=== PATIENT | male | born 1990 | race Caucasian/White ===

== ENCOUNTER 2018-08-21 10:48 | Emergency (ER) | payer SELFPAY ==
--- NOTE | 2018-08-21 11:31 | EDM.PDOC ---
ED HPI GENERAL MEDICAL PROBLEM - General Chief Complaint: General Stated Complaint: BOWEL ISSUES Time Seen by Provider: 08/21/18 10:53 Source of Information: Reports: Patient History Limitations: Reports: No Limitations - History of Present Illness INITIAL COMMENTS - FREE TEXT/NARRATIVE: HISTORY AND PHYSICAL: History of present illness: Patient is a 28-year-old male presents to the ED today with concern of frequent bowel movement since this morning. Patient states that since this morning he has had approximately 8 different formed bowel movements today and he is concerned that this is unusual. He denies watery consistency and states that it is a normal stool. He denies change in color, of the stool. He states over the past week he has gained 10 pounds and was then concerned about this. He states he does eat a larger amount of food on a day-to-day basis and states he does not eat very healthy. He states he usually does have regular bowel movements about once a day. He denies any blood in his stool. Patient does express been concerned that he has cancer because he has a family history of lung cancers and different cancers. Patient denies any abdominal pain with his symptoms. Patient denies fever, chills, chest pain, shortness of breath, or cough. Denies headache, neck stiff ness, change in vision, syncope, or near syncope. Denies nausea, vomiting, abdominal pain, or dysuria. Has not noted any blood in urine or stool. Patient has been eating and drinking appropriately. Review of systems: As per history of present illness and below otherwise all systems reviewed and negative. Past medical history: As per history of present illness and as reviewed below otherwise noncontributory. Surgical history: As per history of present illness and as reviewed below otherwise noncontributory. Social history: See social history for further information Family history: As per history of present illness and as reviewed below otherwise noncontributory. Physical exam: General: Patient is alert, oriented, and in no acute distress. Patient sitting comfortably on exam table. HEENT: Atraumatic, normocephalic, pupils equal and reactive bilaterally, negative for conjunctival pallor or scleral icterus, mucous membranes moist, TMs normal bilaterally, throat clear, neck supple, nontender, trachea midline. No drooling or trismus noted. No meningeal signs. No hot potato voice noted. Lungs: Clear to auscultation, breath sounds equal bilaterally, chest nontender. Heart: S1S2, regular rate and rhythm without overt murmur Abdomen: Obese, soft, nondistended, nontender. Negative for masses or hepatosplenomegaly. Negative for costovertebral tenderness. Pelvis: Stable nontender. Genitourinary: Deferred. Rectal: Deferred. Skin: Intact, warm, dry. No lesions or rashes noted. Extremities: Atraumatic, negative for cords or calf pain. Neurovascular unremarkable. Neuro: Awake, alert, oriented. Cranial nerves II through XII unremarkable. Cerebellum unremarkable. Motor and sensory unremarkable throughout. Exam nonfocal. Notes: Discussed the importance for follow with the primary care provider for repeat lab work. Voices understanding and is agreeable to plan of care. Denies any further questions or concerns at this time. Diagnostics: CBC, CMP, UA, TSH, flat and upright x-ray Therapeutics: None Prescription: None Impression: Frequent bowel movement Transaminitis Plan: 1. Follow up with her primary care provider as discussed. 2. You can alternate Tylenol or ibuprofen as directed for pain and discomfort. 3. Return to the ED as needed and as discussed. Definitive disposition and diagnosis as appropriate pending reevaluation and review of above. Rectal Pain Score (Numeric/FACES): 7 - Related Data Allergies Allergy/AdvReac Type Severity Reaction Status Date / Time No Known Allergies Allergy Verified 08/21/18 11:06 Home Meds: Home Meds . [No Known Home Meds] 08/21/18 [History] Past Medical History Cardiovascular History: Reports: None Respiratory History: Reports: None Genitourinary History: Reports: None Musculoskeletal History: Reports: None Neurological History: Reports: None Psychiatric History: Reports: None Endocrine/Metabolic History: Reports: None Hematologic History: Reports: None Immunologic History: Reports: None Oncologic (Cancer) History: Reports: None Dermatologic History: Reports: None - Infectious Disease History Infectious Disease History: Reports: None - Past Surgical History Head Surgeries/Procedures: Reports: None HEENT Surgical History: Reports: Myringotomy w Tube(s) GI Surgical History: Reports: Hernia, Inguinal Other GI Surgeries/Procedures: left Male Surgical History: Reports: None Social & Family History - Tobacco Use Smoking Status *Q: Never Smoker Second Hand Smoke Exposure: No - Caffeine Use Caffeine Use: Reports: Energy Drinks - Recreational Drug Use Recreational Drug Use: No ED ROS GENERAL - Review of Systems Review Of Systems: ROS reveals no pertinent complaints other than HPI. ED EXAM, GENERAL - Physical Exam Exam: See Below (See dictation) Course - Vital Signs Last Recorded V/S: Last Vital Signs Temp 36.4 C 08/21/18 11:03 Pulse 87 08/21/18 11:03 Resp 18 08/21/18 11:03 BP 118/87 08/21/18 11:03 Pulse Ox 97 08/21/18 11:03 - Orders/Labs/Meds Labs: Laboratory Tests 08/21/18 08/21/18 08/21/18 Range/Units 11:44 11:44 12:44 WBC 8.48 (4.0-11.0) K/uL RBC 5.43 (4.50-5.90) M/uL Hgb 16.3 (13.0-17.0) g/dL Hct 45.7 (38.0-50.0) % MCV 84.2 (80.0-98.0) fL MCH 30.0 (27.0-32.0) pg MCHC 35.7 (31.0-37.0) g/dL RDW Std Deviation 37.5 (28.0-62.0) fl RDW Coeff of Teofilo 12 (11.0-15.0) % Plt Count 191 (150-400) K/uL MPV 10.10 (7.40-12.00) fL Neut % (Auto) 63.6 (48.0-80.0) % Lymph % (Auto) 23.5 (16.0-40.0) % [place] % (Auto) 9.2 (0.0-15.0) % Eos % (Auto) 3.5 (0.0-7.0) % Baso % (Auto) 0.2 (0.0-1.5) % Neut # (Auto) 5.4 (1.4-5.7) K/uL Lymph # (Auto) 2.0 (0.6-2.4) K/uL [place] # (Auto) 0.8 (0.0-0.8) K/uL Eos # (Auto) 0.3 (0.0-0.7) K/uL Baso # (Auto) 0.0 (0.0-0.1) K/uL Nucleated RBC % 0.0 /100WBC Nucleated RBCs # 0 K/uL Sodium 140 (136-148) mmol/L Potassium 4.2 (3.5-5.1) mmol/L Chloride 103 (98-107) mmol/L Carbon Dioxide 29.2 (21.0-32.0) mmol/L BUN 14 (7.0-18.0) mg/dL Creatinine 1.1 (0.8-1.3) mg/dL Est Cr Clr Drug Dosing 117.36 mL/min Estimated GFR (MDRD) > 60.0 ml/min Glucose 105 (74-106) mg/dL Calcium 8.8 (8.5-10.1) mg/dL Total Bilirubin 0.4 (0.2-1.0) mg/dL AST 40 H (15-37) IU/L ALT 90 H (14-63) IU/L Alkaline Phosphatase 76 (46-116) U/L Total Protein 7.4 (6.4-8.2) g/dL Albumin 4.1 (3.4-5.0) g/dL Globulin 3.3 (2.6-4.0) g/dL Albumin/Globulin Ratio 1.2 (0.9-1.6) TSH 3rd Generation 3.53 (0.36-3.74) uIU/mL Urine Color YELLOW Urine Appearance CLEAR Urine pH 6.0 (5.0-8.0) Ur Specific [place] 1.010 (1.001-1.035) Urine Protein NEGATIVE (NEGATIVE) mg/dL Urine Glucose (UA) NEGATIVE (NEGATIVE) mg/dL Urine Ketones NEGATIVE (NEGATIVE) mg/dL Urine Occult Blood NEGATIVE (NEGATIVE) Urine Nitrite NEGATIVE (NEGATIVE) Urine Bilirubin NEGATIVE (NEGATIVE) Urine Urobilinogen 0.2 (<2.0) EU/dL Ur Leukocyte Esterase NEGATIVE (NEGATIVE) Departure - Departure Time of Disposition: 13:37 Disposition: Home, Self-Care 01 Clinical Impression: Frequent bowel movements, Transaminitis - Discharge Information Referrals: PCP,None [Primary Care Provider] - Forms: ED Department Discharge Additional Instructions: The following information is given to patients seen in the emergency department who are being discharged to home. This information is to outline your options for follow-up care. We provide all patients seen in our emergency department with a follow-up referral. The need for follow-up, as well as the timing and circumstances, are variable depending upon the specifics of your emergency department visit. If you don't have a primary care physician on staff, we will provide you with a referral. We always advise you to contact your personal physician following an emergency department visit to inform them of the circumstance of the visit and for follow-up with them and/or the need for any referrals to a consulting specialist. The emergency department will also refer you to a specialist when appropriate. This referral assures that you have the opportunity for follow-up care with a specialist. All of these measure are taken in an effort to provide you with optimal care, which includes your follow-up. Under all circumstances we always encourage you to contact your private physician who remains a resource for coordinating your care. When calling for follow-up care, please make the office aware that this follow-up is from your recent emergency room visit. If for any reason you are refused follow-up, please contact the [facility] Emergency Department at and asked to speak to the emergency department charge nurse. [facility] Primary Care [address] [place] [id number] [address] [id number] 1. Follow up with her primary care provider as discussed. 2. You can alternate Tylenol or ibuprofen as directed for pain and discomfort. 3. Return to the ED as needed and as discussed.
[2018-08-21 12:17] LABS: CHLORIDE,CL 103 mmol/L (98-107); SODIUM,NA 140 mmol/L (136-148)
--- NOTE | 2018-08-21 13:31 | CR ---
HISTORY: Pain. TECHNIQUE: Supine and upright frontal views of the abdomen. COMPARISON: None. FINDINGS: Gas and moderate amount of stool in nondilated colon. Minimal small bowel gas. No free intraperitoneal gas. IMPRESSION: No dilated bowel or free intraperitoneal gas. Dictated by Alex Smallwood MD @ Aug 21 2018 1:27PM Signed by Dr. Alex Smallwood @ Aug 21 2018 1:29PM
== END 2018-08-21 14:00 | disposition home or self-care (01) ==
LOC: MW.ED 10:48
DX: R19.4 Change in bowel habit (principal); R74.0 Nonspecific elevation of levels of transaminase and lactic acid dehydrogenase [LDH]
CPT/HCPCS: 36415; 74019; 74019-26; 80053; 81003; 84443; 85025; 99283-25

== ENCOUNTER 2018-09-01 16:41 | Emergency (ER) | payer BC ==
[2018-09-01] MEDS ORDERED: Tetracaine HCl/PF 0.5% 4 ML Bottle EYEBOTH STA (16:57)
[2018-09-01] MEDS ORDERED: Diphtheria,Pertussis(Acell),Tetanus Vaccine 0.5 ML Syringe IM ONE (17:11)
--- NOTE | 2018-09-01 17:15 | EDM.PDOC ---
ED HPI GENERAL MEDICAL PROBLEM - General Chief Complaint: Eye Problems Stated Complaint: SOMETHING IN RIGHT EYE Time Seen by Provider: 09/01/18 16:49 Source of Information: Reports: Patient History Limitations: Reports: No Limitations - History of Present Illness INITIAL COMMENTS - FREE TEXT/NARRATIVE: HISTORY AND PHYSICAL: History of present illness: Patient is a 28-year-old male presents to the ED today with concern of metal or dust that got into his right eye just prior to arrival to the ED. 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 Patient states he immediately flushed the eye with a bottle of water but kept having issues. Patient states he is not up-to- date on his vaccinations. Patient has not taken anything for her symptoms. Patient denies any visual changes or blurry vision. Patient does not wear contacts. Patient denies fever, chills, chest pain, shortness of breath, or cough. Denies headache, neck stiff ness, change in vision, syncope, or near syncope. Denies nausea, vomiting, abdominal pain, diarrhea, constipation, or dysuria. Has not noted any blood in urine or stool. Patient has been eating and drinking appropriately. Review of systems: As per history of present illness and below otherwise all systems reviewed and negative. Past medical history: As per history of present illness and as reviewed below otherwise noncontributory. Surgical history: As per history of present illness and as reviewed below otherwise noncontributory. Social history: See social history for further information Family history: As per history of present illness and as reviewed below otherwise noncontributory. Physical exam: General: Patient is alert, oriented, and in no acute distress. Patient sitting comfortably on exam table. HEENT: Atraumatic, normocephalic, pupils equal and reactive bilaterally, negative for conjunctival pallor or scleral icterus, mucous membranes moist, TMs normal bilaterally, throat clear, neck supple, nontender, trachea midline. No drooling or trismus noted. No meningeal signs. No hot potato voice noted. Visual acuity performed upon arrival and intact. There is a pinpoint foreign body on the anterior chamber of the cornea of the right eye. No other corneal abrasions noted. Foreign body was removed. Eyelids were inverted without any other foreign body material noted. Lungs: Clear to auscultation, breath sounds equal bilaterally, chest nontender. Heart: S1S2, regular rate and rhythm without overt murmur Abdomen: Soft, nondistended, nontender. Negative for masses or hepatosplenomegaly. Negative for costovertebral tenderness. Pelvis: Stable nontender. Genitourinary: Deferred. Rectal: Deferred. Skin: Intact, warm, dry. No lesions or rashes noted. Extremities: Atraumatic, negative for cords or calf pain. Neurovascular unremarkable. Neuro: Awake, alert, oriented. Cranial nerves II through XII unremarkable. Cerebellum unremarkable. Motor and sensory unremarkable throughout. Exam nonfocal. Notes: Discussed the importance for follow-up with a primary care provider and archeology professor. Voices understanding and is agreeable to plan of care. Denies any further questions or concerns at this time. Diagnostics: None Therapeutics: tdap, foreign body removal Prescription: Erythromycin ophthalmic Impression: Foreign body, right eye, resolved Corneal abrasion due to foreign body Plan: 1. Apply medication as prescribed. You can alternate ibuprofen or Tylenol as directed for pain and discomfort. 2. Follow-up with your primary care provider and the archeology professor as discussed. 3. Return to the ED as needed and as discussed. Definitive disposition and diagnosis as appropriate pending reevaluation and review of above. Right Eye Pain Score (Numeric/FACES): 0 - Related Data Allergies Allergy/AdvReac Type Severity Reaction Status Date / Time No Known Allergies Allergy Verified 09/01/18 16:55 Home Meds: Home Meds Erythromycin Base [Erythromycin 0.5% Ophth Oint] 1 applic OP Q4H 5 Days #1 tube 09/01/18 [Rx] Past Medical History Cardiovascular History: Reports: None Respiratory History: Reports: None Genitourinary History: Reports: None Musculoskeletal History: Reports: None Neurological History: Reports: None Psychiatric History: Reports: None Endocrine/Metabolic History: Reports: None Hematologic History: Reports: None Immunologic History: Reports: None Oncologic (Cancer) History: Reports: None Dermatologic History: Reports: None - Infectious Disease History Infectious Disease History: Reports: Chicken Pox - Past Surgical History Head Surgeries/Procedures: Reports: None HEENT Surgical History: Reports: Myringotomy w Tube(s) GI Surgical History: Reports: Hernia, Inguinal Other GI Surgeries/Procedures: left Male Surgical History: Reports: None Social & Family History - Family History Family Medical History: Noncontributory - Tobacco Use Smoking Status *Q: Never Smoker - Caffeine Use Caffeine Use: Reports: Energy Drinks - Recreational Drug Use Recreational Drug Use: No ED ROS GENERAL - Review of Systems Review Of Systems: ROS reveals no pertinent complaints other than HPI. ED EXAM GENERAL W FULL EYE - Physical Exam Exam: See Below (See dictation) Course - Vital Signs Last Recorded V/S: Last Vital Signs Temp 36.5 C 09/01/18 16:52 Pulse 78 09/01/18 16:52 Resp 15 09/01/18 16:52 BP 136/91 H 09/01/18 16:52 Pulse Ox 94 L 09/01/18 16:52 - Orders/Labs/Meds Meds: Medications Discontinued Medications Generic Name Dose Route Start Last Admin Trade Name Freq PRN Reason Stop Dose Admin Tetracaine HCl 1 ml 09/01/18 16:57 09/01/18 17:05 Tetracaine 0.5% Steri-Unit Yanira EYEBOTH 09/01/18 16:58 2 drop NOW STA Administration Departure - Departure Time of Disposition: 17:11 Disposition: Home, Self-Care 01 Clinical Impression: Foreign body, eye Qualifiers: Encounter type: initial encounter Laterality: right Qualified Code(s): T15.91XA - Foreign body on external eye, part unspecified, right eye, initial encounter - Discharge Information Prescriptions: Erythromycin Base [Erythromycin 0.5% Ophth Oint] 1 applic OP Q4H 5 Days #1 tube Instructions: Eye Foreign Body, [id number] Referrals: PCP,None [Primary Care Provider] - Additional Instructions: The following information is given to patients seen in the emergency department who are being discharged to home. This information is to outline your options for follow-up care. We provide all patients seen in our emergency department with a follow-up referral. The need for follow-up, as well as the timing and circumstances, are variable depending upon the specifics of your emergency department visit. If you don't have a primary care physician on staff, we will provide you with a referral. We always advise you to contact your personal physician following an emergency department visit to inform them of the circumstance of the visit and for follow-up with them and/or the need for any referrals to a consulting specialist. The emergency department will also refer you to a specialist when appropriate. This referral assures that you have the opportunity for follow-up care with a specialist. All of these measure are taken in an effort to provide you with optimal care, which includes your follow-up. Under all circumstances we always encourage you to contact your private physician who remains a resource for coordinating your care. When calling for follow-up care, please make the office aware that this follow-up is from your recent emergency room visit. If for any reason you are refused follow-up, please contact the [facility] Emergency Department at and asked to speak to the emergency department charge nurse. [facility] Primary [facility] [address] [place] [id number] [facility] [address] [place] [id number] 1. Apply medication as prescribed. You can alternate ibuprofen or Tylenol as directed for pain and discomfort. 2. Follow-up with your primary care provider and the archeology professor as discussed. 3. Return to the ED as needed and as discussed.
== END 2018-09-01 17:22 | disposition home or self-care (01) ==
LOC: MW.ED 16:41
DX: T15.01XA Foreign body in cornea, right eye, initial encounter (principal); W45.8XXA Other foreign body or object entering through skin, initial encounter; Z23 Encounter for immunization
CPT/HCPCS: 90471; 90715; 99283